=== PATIENT | male | born 1970 | race Caucasian/White ===

== ENCOUNTER 2024-07-21 07:04 | Emergency (ER) | payer BC, SELFPAY ==
[2024-07-21] VITALS (20 sets, daily range): BP systolic 80–138; BP diastolic 58–107; BMI 35.0
--- NOTE | 2024-07-21 07:22 | ED.GENMED ---
History of Present Illness
General
Chief Complaint: Cardiac Symptoms
Source: patient
Exam Limitations: none
Time Seen by Provider: 07/21/24 07:15
History of Present Illness
History of Present Illness:
See MDM
Past History
Past History
ED Past Medical History: Arrthythmia
ED Past Surgical History: Appendectomy and Orthopedic
Social History
Tobacco: Non-smoker
Alcohol: Occasional (few beers few times a week)
Drug: None
Personal:
Living: with family
Employment: Employed (power plant electrician)
Family History
Family History: Other (Mothers side of family have history of hemochromatosis)
Phy Exam
Physical Exam
Physical Exam:
See MDM
Course
Orders/Labs/Results
Orders:
Orders
07/21/24 07:07
Electrocardiogram (*1) Urgent
Reason for Study: Atrial Fibrillation
EKG- Treatment ONCE
07/21/24 07:18
Metoprolol [Lopressor] 5 mg .ROUTE .STK-MED ONE
07/21/24 07:22
0.9% Sodium Chloride 1000 ml [Nss] 1,000 ml IV BOLUS
Metoprolol [Lopressor] 5 mg IV NOW STA
07/21/24 07:29
Complete Blood Count/With Diff Urgent
Comprehensive Metabolic Panel Urgent
Magnesium Urgent
07/21/24 07:47
Propofol [Diprivan] 20 ml .ROUTE .STK-MED
07/21/24 08:08
EKG [Electrocardiogram (*1)] Urgent
Reason for Study: Other
Other Reason for Exam: post cardioversion
07/21/24 08:09
EKG- Treatment ONCE
Abnormal Lab Results
07/21/24
07:29
Hct 54.3 H %
(39.0-52.0)
MCV 97.3 H fL
(80.0-94.0)
MCH 32.3 H pg
(27.0-31.0)
Absolute Monos (auto) 0.8 H 10^3/uL
(0.1-0.6)
Monocytes % 10.4 H %
(1.7-9.3)
BUN 28 H mg/dl
(9-20)
Creatinine 1.5 H mg/dL
(0.7-1.3)
Glucose 101 H mg/dl
(70-99)
07/21/24 07:29
07/21/24 07:29
Vital Signs
Initial and Last Documented VS:
Initial Vital Signs
Temp Pulse Resp BP Pulse Ox
98.8 F 87 18 138/92 98
07/21/24 07:08 07/21/24 07:08 07/21/24 07:08 07/21/24 07:08 07/21/24 07:08
Last Documented Vital Signs
Temp Pulse Resp BP Pulse Ox
97.6 F 120 19 103/82 88
07/21/24 08:04 07/21/24 08:04 07/21/24 08:04 07/21/24 08:04 07/21/24 08:10
Procedures
Moderate Sedation
ASA Risk Score: Class II
Chart and allergies reviewed: Yes
Consent for anesthesia obtained: Yes
Time out completed (validating right patient & procedure): Yes
Moderate Sedation Start Time(when first medication is given): 08:05
History of difficult intubation: No
Airway free of obstruction: Yes
Patient has a gag reflex: Yes
Patient is able to open mouth: Yes
Patient has no dentures: Yes
Patient has no loose teeth: Yes
Medication administered by Provider during Moderate Sedation: IV Propofol (mg)
Total dose administered: 100
Time drug administered: 08:05
Moderate Sedation Procedure End Time: 08:20
Comment: Time out 8:03 AM
Cardioversion
Indication:: Afib
Performed by:: Miguel Angel Fernandes, DO
Synchronized?: Yes
Energy Used: 150 joules
Number of attempts: 1
Successful?: Yes
Complications: None
ASA Risk Score: Class II
Any reaction or bad outcome to prior sedation/anesthesia?: No history of a reaction
Sedation level to be attained: moderate
Chart and allergies reviewed: Yes
Patient reassessed prior to sedation: Yes
Time out completed at (validating right patient & procedure): 08:03
History of difficult intubation: No
Airway free of obstruction: Yes
Patient has a gag reflex: Yes
Patient is able to open mouth: Yes
Patient has no dentures: Yes
Patient has no loose teeth: Yes
Medication administered by Provider during Moderate Sedation: IV Propofol (mg)
Total dose administered: 100
Time drug administered: 08:05
Start Time: 08:05
Stop Time: 08:20
MDM/Problems Addressed
Differential Diagnosis Includes:
HPI and MDM Narrative:
54-year-old male presenting for evaluation of palpitations. Patient has a history of paroxysmal A-fib. He claims compliance with Eliquis. He has required cardioversion in the past. Patient does not always realize when he is in A-fib but his
Apple Watch was alerting him on exam, he is well-appearing and nontoxic but he is tachycardic and EKG confirms A-fib with RVR. Patient states he has had significant allergic reaction to other antiarrhythmics but is currently on metoprolol with no
issues. Will give IV dose of metoprolol and attempt to chemically cardiovert and provide IV fluids and consent for synchronized cardioversion if he does not convert
Physical exam
General: Well appearing and non-toxic
HEENT: protecting airway
Neck: appears supple
CV: No evidence of cyanosis. Tachycardic and irregular
Resp: No accessory muscle use
Abd: Non-distended
Extremities: No deformities. No leg edema
Neuro: alert
Psych: Normal affect
Skin: Intact
Problems Addressed including Acute and Chronic Conditions affecting care:
1. A-fib with RVR
Acuity: acute
Prognosis: unstable
Details: Will give IV metoprolol and attempt to chemically cardiovert. Will give IV fluids. If patient remains A-fib, will consider synchronized cardioversion
Updates
Given the persistent A-fib despite IV metoprolol, patient cardioverted. Patient tolerated procedure well and currently in sinus rhythm
Differential Diagnosis (but not limited to): A-fib, dehydration, palpitation
Testing considered: Troponin
Drug therapy (if applicable): OTC meds, please see d/c instruction regarding Rx drugs
Amount and/or Complexity of Data Reviewed
Clinical info obtained from: Patient
External data reviewed: N/A
Labs I independently reviewed (but not limited to): Hemoglobin normal
Radiology: N/A
Pulse Ox: not hypoxic
EKG independently reviewed: A-fib with RVR, normal axis, no STEMI
Composition Molder: A-fib
Critical Care: The high probability of a clinically significant, sudden or life threatening deterioration of the cardiovascular system(s) required my full and direct attention, intervention and personal management. The aggregate critical care time
was 33 minutes. This time is in addition to time spent performing reported procedures but includes the following:
[x] Data Review and interpretation
[x] Patient assessment and monitoring of vital signs
[x] Documentation
[x] Medication orders and management
Risk of Complication:
Social Determinants of health: Good social support
Discussed with other providers: N/A
Escalation of Care includes Admit/Obs: After being observed in the Emergency Department, pt stable for discharge.
Occasional wrong word or 'sound a like' substitutions may have occurred due to the inherent limitations of voice recognition software. Read the chart carefully and recognize, using context, where substitutions have occurred.
*Critical Care Note
Total Time (30-74mins, 75-104mins- exclusive of procedures): 33 min
ED Attending Note
-
Portions of this chart may have been created with voice recognition software.� Occasional wrong word or��sound alike� substitutions may have occurred due to the inherent limitations of voice recognition software.
Discharge Plan
Departure
Patient Disposition: Home (Routine Discharge)
Date of Disposition: 07/21/24
Time of Disposition: 08:15
Patient with high blood pressure during this ER visit?: No
Discharge Problem:
Atrial fibrillation with RVR
Instructions: Cardioversion - Discharge instructions, MODERATE SEDATION ADULT
Prescriptions:
No Action
melatonin 10 MG tablet
20 mg PO HS
metoprolol tartrate 50 MG tablet
50 mg PO BID
Eliquis 5 MG tablet
5 mg PO BID
Activity Restrictions/Additional Instructions:
Please return for any worsening symptoms.
You may return at any time if you have further concerns.
Please follow up with your doctor at the first available appointment, preferably this week.
Thank you for choosing [facility].
Interventions
Interventions:
*Risk Screen - Suicide Last Done: 07/21/24 07:08
*General Assessment Last Done: 07/21/24 07:48
*Neglect/Abuse Screening Last Done: 07/21/24 07:08
ED- Fall Risk Assessment Last Done: 07/21/24 07:48
*ED COVID-19 Vaccine History Last Done: 07/21/24 07:48
ED- Pulmonary Assessment Last Done: 07/21/24 07:48
ED- Cardiac Assessment Last Done: 07/21/24 07:48
Discharge Date and Time
Print Language: LAO
[2024-07-21] MEDS: LOPRESSOR 5 MG IV (07:30)
[2024-07-21] MEDS: NSS 1000 IV (07:31)
[2024-07-21 08:00] LABS: ALT (SGPT) 34 U/L (0-50); AST (SGOT) 34 U/L (17-59); Albumin 4.3 g/dl (3.5-5.0); Alkaline Phosphatase 52 U/L (38-126); Blood Urea Nitrogen 28 mg/dl (9-20); Calcium 10.1 mg/dl (8.4-10.2); Carbon Dioxide 28 mmol/L (22-30); Chloride 100 mmol/L (98-107); Estimated Creatinine Clearance 64 ml/min; Glucose 101 mg/dl (70-99); Sodium 136 mmol/L (135-145); Total Protein 6.9 g/dl (6.3-8.2)
[2024-07-21 08:11] LABS: % Basophils 0.8 % (0-2); % Eosinophils 2.7 % (0-6); % Immature Granulocytes 0.4 % (0-0.5); % Lymphocytes 26.6 % (20.5-51.1); % Monocytes 10.4 % (1.7-9.3); % Neutrophils 59.1 % (42.2-75.2); Absolute Basophils 0.1 10^3/uL (0-0.2); Absolute Eosinophils 0.2 10^3/uL (0-0.7); Absolute Lymphocytes 2.1 10^3/uL (1.2-3.4); Absolute Monocytes 0.8 10^3/uL (0.1-0.6); Absolute Neutrophils 4.6 10^3/uL (1.4-6.5); Hematocrit 54.3 % (39.0-52.0); Mean Corp Hgb Conc. 33.1 g/dL (33.0-37.0); Mean Corpuscular Hgb 32.3 pg (27.0-31.0); Mean Corpuscular Volume 97.3 fL (80.0-94.0); Mean Platelet Volume 10.2 fL (7.4-10.4); Nucleated Red Blood Cells % 0 % (-); Platelet Count 198 10^3/uL (130-400); Red Blood Cell Count 5.58 10^6/uL (4.70-6.10); Red Cell Dist. Width 12.9 % (11.5-14.5); White Blood Cell Count 7.7 10^3/uL (4.8-10.8)
== END 2024-07-21 09:51 | disposition home or self-care (01) ==
LOC: EMR 07:04
PROVIDERS: EMERGENCY PHYSICIAN Student in an Organized Health Care Education/Training Program; FAMILY PHYSICIAN Physician Assistant Medical
DX: I48.91 Unspecified atrial fibrillation (principal); Z90.49 Acquired absence of other specified parts of digestive tract; Z79.01 Long term (current) use of anticoagulants
CPT/HCPCS: 92960; 99152; 96374; 96361; 99291; 80053; 83735; 85025; 93005

== ENCOUNTER → 2024-10-15 13:30 | Outpatient (REF) | payer BC, SELFPAY | LOC: MRI 3T 13:30 | PROVIDERS: ATTENDING PHYSICIAN Orthopaedic Surgery; FAMILY PHYSICIAN Physician Assistant Medical | DX: S46.012A Strain of muscle(s) and tendon(s) of the rotator cuff of left shoulder, initial encounter (principal); S46.112A Strain of muscle, fascia and tendon of long head of biceps, left arm, initial encounter | CPT/HCPCS: 73221 ==

== ENCOUNTER 2024-10-19 08:55 | Day surgery (SDC) | payer BC, SELFPAY ==
[2024-10-07 07:52] VITALS: BMI 34.3
[2024-10-07 08:33] LABS: % Basophils 0.7 % (0-2); % Eosinophils 2.7 % (0-6); % Immature Granulocytes 0.4 % (0-0.5); % Lymphocytes 24.4 % (20.5-51.1); % Monocytes 8.6 % (1.7-9.3); % Neutrophils 63.2 % (42.2-75.2); Absolute Basophils 0.1 10^3/uL (0-0.2); Absolute Eosinophils 0.2 10^3/uL (0-0.7); Absolute Lymphocytes 1.7 10^3/uL (1.2-3.4); Absolute Monocytes 0.6 10^3/uL (0.1-0.6); Absolute Neutrophils 4.3 10^3/uL (1.4-6.5); Hematocrit 54.8 % (39.0-52.0); Hemoglobin 18.6 g/dL (13.0-18.0); Mean Corp Hgb Conc. 33.9 g/dL (33.0-37.0); Mean Corpuscular Hgb 32.3 pg (27.0-31.0); Mean Corpuscular Volume 95.1 fL (80.0-94.0); Mean Platelet Volume 9.2 fL (7.4-10.4); Nucleated Red Blood Cells % 0 % (-); Platelet Count 221 10^3/uL (130-400); Red Blood Cell Count 5.76 10^6/uL (4.70-6.10); Red Cell Dist. Width 12.4 % (11.5-14.5); White Blood Cell Count 6.8 10^3/uL (4.8-10.8)
[2024-10-07 08:36] LABS: INR 1.01; PT 13.6 Sec (11.4-14.6)
[2024-10-07 08:40] LABS: ALT (SGPT) 28 U/L (0-50); AST (SGOT) 23 U/L (17-59); Albumin 4.3 g/dl (3.5-5.0); Alkaline Phosphatase 64 U/L (38-126); Blood Urea Nitrogen 17 mg/dl (9-20); Carbon Dioxide 28 mmol/L (22-30); Chloride 101 mmol/L (98-107); Estimated Creatinine Clearance 84 ml/min; Glucose 108 mg/dl (70-99); Potassium 4.5 mmol/L (3.5-5.1); Sodium 138 mmol/L (135-145); Total Bilirubin 0.9 mg/dl (0.2-1.3); Total Protein 7.2 g/dl (6.3-8.2); eGFR > 60.00
[2024-10-19] VITALS (12 sets, daily range): BP systolic 103–151; BP diastolic 71–100
[2024-10-19] MEDS: NSS 500 IV (09:31)
--- NOTE | 2024-10-19 14:29 | ITS.CL.ABL ---
District Director - Ablation
Ablation
Procedure Report:
[employer] Estimator: Javier Rodriguez MD
Procedure Date: 10/19/2024
Patient History:
Patient is a pleasant 54-year-old male with a past medical history significant for hypertension, polycythemia vera, severe sleep apnea on CPAP, obesity, symptomatic paroxysmal atrial fibrillation.
See H&P for complete details.
Indication:
Symptomatic paroxysmal atrial fibrillation
Significant risk factors for recurrence of A-fib
Arrhythmia Specific History:
Prior Medical Therapies for Rate and Rhythm Control:
X Beta-sujatha
[ ] Calcium channel-sujatha
[ ] Amiodarone
[ ] Dronederone
[ ] Sotalol
[ ] Flecainide
[ ] Dofetilide
[ ] Options limited by bradycardia
[ ] Options limited by comorbid renal disease
Prior Procedural Therapies for AF/AFL:
X Cardioversion
[ ] Pulmonary Vein Isolation
[ ] Posterior Wall Isolation
[ ] Additional lines (Specify)
[ ] Surgical Langford-MAZE or PVI (Specify)
Procedure Performed:
X AF ablation procedure (54523) -- includes LA/CS pacing, trans-septal, 3D mapping, + ICE
[ ] +IV drug (91841)
[ ] +Other Arrhythmia (71098)
X +Other AF Line/ablation (16608) - PWI (posterior wall, floor, roof)
Risks and expected recovery has been explained in detail. Alternative options have been explored, and in a shared-decision making fashion we have decided that this was the most appropriate procedure.
Method
NPO status confirmed. Grounding pad applied. Defibrillator pads applied. Continuous surface ECG, pulse oximetry, and blood pressure were monitored. Procedure was performed under general anesthesia, with anesthesia services.
Both groins were clipped, prepped with Chloraprep, and draped in sterile fashion. Time out was called. Local anesthesia administered with bupivacaine. The right femoral vein was accessed for catheter placement, using ultrasound guidance (images
saved to record), micro-puncture needle/wire, and modified seldinger technique. 3 sheaths were placed. The following catheters were used:
[ ] Tacticath SE (D/F Curve) ablation catheter
X Viewflex 9Fr ICE catheter
X Inquiry decapolar 6Fr diagnostic catheter
[ ] CRD Hex 6Fr
[ ] Arctic Front Advance Cryoballoon ([ ]28mm[ ]23mm)
[ ] Achieve Advance mapping catheter ([ ]15mm[ ]20mm)
X FlexCath Contour 10 Fr with PulseSelect PFA Catheter
X Advisor HD Grid Mapping Catheter, SE
[ ] AcusSidelineSwap AcuNav 8 Fr ICE catheter
[ ]Other: [ ]
Intracardiac ultrasound (ICE) was carefully advanced into the right atrium to guide sheath placement over a J-wire, catheter placement, guide trans-septal puncture, identify potential complications, identify anatomic structures and ensure proper
contact between ablation catheter and tissue.
Heparin was given prior to trans-septal puncture. Heparin was given to achieve and maintain a target ACT of 300-400 seconds throughout the procedure.
Trans-septal access was performed under ICE guidance. The trans-septal puncture was performed with a SafeSept wire through a Brockenbrough needle assembly through the steerable sheath. The wire was visualized as it entered the LSPV and system
advanced under ICE guidance and fluoroscopy into the LA. The Brockenbrough needle assembly, SafeSept wire and sheath dilator were removed under negative pressure. LA pressure was measured and recorded.
ICE and 3D mapping was performed to identify relevant cardiac structures. A careful 3D map was created to assess for regions of low-voltage and abnormal electrogram signals using HD grid mapping catheter and PulseSelect catheter. Additional mapping
was performed as outlined below.
Prior to ablation, glycopyrrolate was provided. PulseSelect catheter was advanced over J-wire to the ostium of each vein. Pulmonary vein isolation was performed with ostial and antral lesions in a circumferential manner. Contact was visualized via
EAM, ICE, fluoroscopy, and EGM signals. Posterior wall isolation was performed by anchoring the J-wire within the pulmonary vein and placing the PulseSelect catheter in contact with the posterior wall as visualized by aforementioned methods. During
ablation, patient went into atrial fibrillation. Following completion of ablation lesions, sinus rhythm was restored with a 200J synchronized DCCV and a post-ablation voltage/activation map was performed in sinus rhythm. Entrance and exit block
were confirmed for each vein and the posterior wall.
Catheter and sheath were removed from the left atrium and post-ablation intracardiac echo evaluation was consistent with pre-ablation with no changes and no pericardial effusion and there is no left atrial thrombus or left ventricle thrombus seen.
Electrophysiology study was performed. Hemostasis was obtained with Vascade for each sheath and with manual pressure. Protamine was used for reversal.
Estimated Blood Loss
5 mL
Complications
None
Fluoroscopy: 3.4 minutes; 24.20 mGy; DAP 3.77
Baseline Intervals:
Rhythm: SR
IA: 131 ms
QRS: 93 ms
QT: 307 ms
QTc: 418 ms
Post-Procedure Intervals:
IA: 154 ms
QRS: 94 ms
QT: 360 ms
QTc: 386 ms
AVWB: 350 ms
AVERP: 600/280 ms
Recommendations
- Bedrest with straight-leg precautions as ordered
- Anticipate same day discharge if patient meeting clinical metrics
- Resume home medications as indicated
- Ok to resume anticoagulation tonight if patient and groin sites stable
- PPI daily for 30 days
- Plan for follow-up in office as scheduled
William Sams DO, FACC
Clinical Cardiac Manager [employer]
cc: Javier Rodriguez MD; TY Rodriguez
[2024-10-19] MEDS: TYLENOL 650 MG PO (15:07)
--- NOTE | 2024-10-19 16:11 | W.PN.UPDATE ---
Update Note
Progress Note Update
54 yo WM s/p PVI (same day). He denies cp, sob, lynette clears, mod shoulder pain which is chronic but improved with repositioning, EKG SR, R fem site VASCADE c/d/i no HT, soft. He will resume Eliquis at 9pm tonight. He will continue metoprolol and will
add PPI for 30 days. Activity restrictions reviewed. He will f/u DCA in 2mo. He is for d/c home after 530p if groin stable.
[2024-10-21 08:34] LABS: ACT-LR - POC 277 Seconds (116-155)
[2024-10-21 08:34] LABS: ACT-LR - POC 366 Seconds (116-155)
[2024-10-21 08:34] LABS: ACT-LR - POC 388 Seconds (116-155)
[2024-10-21 08:34] LABS: ACT-LR - POC 161 Seconds (116-155)
[2024-10-21 08:34] LABS: ACT-LR - POC 379 Seconds (116-155)
[2024-10-21 08:34] LABS: ACT-LR - POC 395 Seconds (116-155)
== END 2024-10-19 17:30 | disposition home or self-care (01) ==
LOC: CATH 08:55
PROVIDERS: ATTENDING PHYSICIAN Internal Medicine Cardiovascular Disease; FAMILY PHYSICIAN Physician Assistant Medical; OTHER PHYSICIAN Internal Medicine Cardiovascular Disease
DX: I48.0 Paroxysmal atrial fibrillation (principal); Z79.899 Other long term (current) drug therapy; Z79.01 Long term (current) use of anticoagulants; I10 Essential (primary) hypertension; E66.9 Obesity, unspecified; G47.33 Obstructive sleep apnea (adult) (pediatric); Z90.49 Acquired absence of other specified parts of digestive tract; Z98.890 Other specified postprocedural states; D45 Polycythemia vera; G47.00 Insomnia, unspecified; Z68.34 Body mass index [BMI] 34.0-34.9, adult
CPT/HCPCS: C1732; C1894; C1730; C1769; C1733; C1766; 36415; 75572; 76937; 80053; 83735; 85025; 85347; 85610; 86850; 86900; 86901; 93005; 93656; 93657; C1760; Q9967

== ENCOUNTER → 2024-12-21 15:49 | Outpatient (REF) | payer BC, SELFPAY | LOC: HWRCS 15:49 | PROVIDERS: ATTENDING PHYSICIAN Internal Medicine Cardiovascular Disease; FAMILY PHYSICIAN Physician Assistant Medical | DX: I48.91 Unspecified atrial fibrillation (principal) | CPT/HCPCS: 93306 ==